=== PATIENT | male | born 1975 | race Two or more races ===

== ENCOUNTER 2019-09-16 23:11 | Inpatient (IN) | payer OTHER ==
[~2019-09-16] VITALS: Ht 170.2 cm; Wt 67.9 kg
[2019-09-16 23:35] LABS: BASOPHILS % (AUTO) 0.8 % (0.0-2.0); EOSINOPHILS % (AUTO) 5.3 % (1.0-6.0); HEMATOCRIT 38.2 % (41-53); HEMOGLOBIN 12.7 g/dL (13.5-17.5); LYMPHOCYTES # (AUTO) 1.6 K/uL (1.0-4.8); LYMPHOCYTES % (AUTO) 31.5 % (22.0-44.0); MEAN CORPUSCULAR HEMOGLOBIN 25.7 pg (26.0-34.0); MEAN CORPUSCULAR HGB CONC 33.3 G/dL (31.0-37.0); MEAN CORPUSCULAR VOLUME 77 fL (80-100); MONOCYTES # (AUTO) 0.5 K/uL (0.1-1.0); MONOCYTES % (AUTO) 10.3 % (2.0-9.0); NEUTROPHILS # (AUTO) 2.7 K/uL (1.8-7.7); NEUTROPHILS % (AUTO) 52.1 % (40.0-70.0); PLATELET COUNT (AUTO) 226 K/uL (150-450); RED BLOOD CELL COUNT(AUTO) 4.96 MIL/uL (4.50-5.90); RED CELL DISTRIBUTION WIDTH 17.2 % (11.5-14.5)
[2019-09-16 23:44] LABS: ANION GAP 8 mmol/L (8-16); CALCIUM, TOTAL 8.9 mg/dL (8.8-10.5); CARBON DIOXIDE 27 mmol/L (22-29); CHLORIDE 109 mmol/L (98-107); CREATININE 0.97 mg/dL (0.60-1.30); GLOMERULAR FILTR. RATE CALC > 60 mL/min (>60); GLUCOSE,RANDOM 97 mg/dL (70-110); POTASSIUM 3.9 mmol/L (3.5-5.1); SODIUM SERUM 144 mmol/L (136-145); UREA NITROGEN, BLOOD 11 mg/dL (7-18)
[2019-09-16] MEDS ORDERED: ARIP10TA8 PO (23:49)
[2019-09-16] MEDS ORDERED: BENZ1TAB10 PO (23:49)
[2019-09-16] MEDS ORDERED: DOXY50CA2 PO (23:49)
[2019-09-16] MEDS ORDERED: RISP2 PO (23:49)
[2019-09-16] MEDS ORDERED: OMEP20 PO (23:49)
[2019-09-16] MEDS ORDERED: METR250 PO (23:49)
[2019-09-16] MEDS ORDERED: HALO50AM2 IM (23:49)
[2019-09-16 23:52] LABS: ALANINE AMINOTRANSFERASE 36 U/L (12-78); ALBUMIN 3.1 g/dL (3.4-5.0); ALKALINE PHOSPHATASE 77 U/L (46-116); ASPARTATE AMINOTRANSFERASE 16 U/L (15-37); BILIRUBIN,TOTAL 0.2 mg/dL (0.1-1.0)
[2019-09-17] MEDS ORDERED: MAGNESIUM HYDROXIDE SUSPENSION 30 ML UDCUP PO PRN (00:15)
[2019-09-17] MEDS ORDERED: 0.9% SODIUM CHLORIDE 10 ML SYRINGE IVP PRN (02:15)
[2019-09-17] MEDS ORDERED: ACETAMINOPHEN 325 MG TABLET PO PRN (02:15)
[2019-09-17] MEDS ORDERED: ONDANSETRON HCL 4 MG/2 ML VIAL IVP PRN (02:15)
[2019-09-17 04:04] VITALS: BP 104/66
[2019-09-17 07:40] VITALS: BP 103/71
[2019-09-17] MEDS: FAMOTIDINE 20 MG TABLET PO SCH (08:15)
[2019-09-17] MEDS: SULFAMETHOX/TRIMETH DS 800-160 MG/TABLET PO SCH ×2 (08:15→20:39)
[2019-09-17] MEDS: ACETAMINOPHEN 325 MG TABLET PO PRN (08:18)
[2019-09-17 09:54] LABS: AMPHET/METH SCREEN,URINE NEGATIVE (NEGATIVE); BARBITURATE SCREEN, URINE NEGATIVE (NEGATIVE); BENZODIAZEPINES SCREEN,URINE NEGATIVE (NEGATIVE); CANNABINOID SCREEN,URINE NEGATIVE (NEGATIVE); COCAINE SCREEN,URINE NEGATIVE (NEGATIVE); METHADONE SCREEN, URINE NEGATIVE (NEGATIVE); OPIATE SCREEN,URINE NEGATIVE (NEGATIVE)
[2019-09-17 09:56] LABS: PHENCYCLIDINE SCREEN,URINE NEGATIVE (NEGATIVE)
[2019-09-17] MEDS: RisperiDONE 2 MG TABLET PO SCH ×2 (12:35→20:39)
[2019-09-17] MEDS: BENZTROPINE MESYLATE 1 MG TABLET PO SCH ×2 (12:35→20:39)
[2019-09-17] MEDS: BACITRACIN 28.4 GM OINTMENT TP SCH (12:36)
[2019-09-17 15:53] VITALS: BP 98/59
[2019-09-17 19:58] VITALS: BP 93/45
[2019-09-18 04:40] VITALS: BP 102/64
[2019-09-18 08:40] VITALS: BP 103/61
[2019-09-18] MEDS: BACITRACIN 28.4 GM OINTMENT TP SCH (08:57)
[2019-09-18] MEDS: BENZTROPINE MESYLATE 1 MG TABLET PO SCH ×2 (08:57→21:07)
[2019-09-18] MEDS: RisperiDONE 2 MG TABLET PO SCH ×2 (08:57→21:07)
[2019-09-18] MEDS: SULFAMETHOX/TRIMETH DS 800-160 MG/TABLET PO SCH ×2 (08:57→21:07)
[2019-09-18] MEDS: FAMOTIDINE 20 MG TABLET PO SCH (08:57)
[2019-09-18 15:10] VITALS: BP 100/53
[2019-09-18 21:05] VITALS: BP 90/54
[2019-09-18] MEDS: ACETAMINOPHEN 325 MG TABLET PO PRN (21:06)
[2019-09-19 04:31] VITALS: BP 96/54
[2019-09-19 07:53] VITALS: BP 108/58
[2019-09-19] MEDS: SULFAMETHOX/TRIMETH DS 800-160 MG/TABLET PO SCH ×2 (08:20→19:47)
[2019-09-19] MEDS: FAMOTIDINE 20 MG TABLET PO SCH (08:20)
[2019-09-19] MEDS: MULTIVITAMINS WITH MINERALS, THERAPEUTIC TABLET PO SCH (08:20)
[2019-09-19] MEDS: BACITRACIN 28.4 GM OINTMENT TP SCH (08:20)
[2019-09-19] MEDS: RisperiDONE 2 MG TABLET PO SCH ×2 (08:20→19:47)
[2019-09-19] MEDS: BENZTROPINE MESYLATE 1 MG TABLET PO SCH ×2 (08:24→19:47)
[2019-09-19 15:46] VITALS: BP 100/62
[2019-09-19] MEDS ORDERED: SODIUM CHLORIDE 0.9% 100 ML ONE (16:34)
[2019-09-19] MEDS ORDERED: IOVERSOL 350 MG/ML 100 ML VIAL ONE (16:34)
[2019-09-19] MEDS: ACETAMINOPHEN 325 MG TABLET PO PRN (19:47)
[2019-09-19 19:53] VITALS: BP 105/66
[2019-09-20 05:02] VITALS: BP 93/57
[2019-09-20 08:29] VITALS: BP 105/64
[2019-09-20] MEDS: FAMOTIDINE 20 MG TABLET PO SCH (12:12)
[2019-09-20] MEDS: MULTIVITAMINS WITH MINERALS, THERAPEUTIC TABLET PO SCH (12:13)
[2019-09-20] MEDS: SULFAMETHOX/TRIMETH DS 800-160 MG/TABLET PO SCH ×2 (12:13→20:12)
[2019-09-20] MEDS: BENZTROPINE MESYLATE 1 MG TABLET PO SCH ×2 (12:13→20:12)
[2019-09-20] MEDS: RisperiDONE 2 MG TABLET PO SCH ×2 (12:13→20:12)
[2019-09-20] MEDS: BACITRACIN 28.4 GM OINTMENT TP SCH (12:14)
[2019-09-20 20:10] VITALS: BP 96/57
[2019-09-21 04:50] VITALS: BP 96/58
[2019-09-21 07:06] LABS: BASOPHILS % (AUTO) 0.6 % (0.0-2.0); EOSINOPHILS % (AUTO) 4.2 % (1.0-6.0); HEMOGLOBIN 12.6 g/dL (13.5-17.5); LYMPHOCYTES # (AUTO) 1.1 K/uL (1.0-4.8); LYMPHOCYTES % (AUTO) 21.4 % (22.0-44.0); MEAN CORPUSCULAR HEMOGLOBIN 25.6 pg (26.0-34.0); MEAN CORPUSCULAR HGB CONC 33.1 G/dL (31.0-37.0); MEAN CORPUSCULAR VOLUME 77 fL (80-100); MONOCYTES # (AUTO) 0.5 K/uL (0.1-1.0); MONOCYTES % (AUTO) 9.6 % (2.0-9.0); NEUTROPHILS # (AUTO) 3.3 K/uL (1.8-7.7); NEUTROPHILS % (AUTO) 64.2 % (40.0-70.0); PLATELET COUNT (AUTO) 200 K/uL (150-450); RED BLOOD CELL COUNT(AUTO) 4.91 MIL/uL (4.50-5.90)
[2019-09-21 07:19] LABS: ANION GAP 6 mmol/L (8-16); CALCIUM, TOTAL 8.5 mg/dL (8.8-10.5); CARBON DIOXIDE 28 mmol/L (22-29); CHLORIDE 105 mmol/L (98-107); CREATININE 1.03 mg/dL (0.60-1.30); GLOMERULAR FILTR. RATE CALC > 60 mL/min (>60); GLUCOSE,RANDOM 87 mg/dL (70-110); POTASSIUM 4.2 mmol/L (3.5-5.1); SODIUM SERUM 139 mmol/L (136-145); UREA NITROGEN, BLOOD 14 mg/dL (7-18)
[2019-09-21 08:01] VITALS: BP 108/52
[2019-09-21] MEDS: MULTIVITAMINS WITH MINERALS, THERAPEUTIC TABLET PO SCH (08:23)
[2019-09-21] MEDS: FAMOTIDINE 20 MG TABLET PO SCH (08:23)
[2019-09-21] MEDS: SULFAMETHOX/TRIMETH DS 800-160 MG/TABLET PO SCH (08:23)
[2019-09-21] MEDS: BENZTROPINE MESYLATE 1 MG TABLET PO SCH (08:23)
[2019-09-21] MEDS: RisperiDONE 2 MG TABLET PO SCH (08:24)
[2019-09-21] MEDS: BACITRACIN 28.4 GM OINTMENT TP SCH (08:24)
[2019-09-21 15:55] VITALS: BP 99/60
== END 2019-09-21 17:55 | DRG 605 ==
LOC: EMS 23:14 → 6S 09-17 01:31
PROVIDERS: ADMIT Internal Medicine; ATTEND Internal Medicine
DX: S71.101A Unspecified open wound, right thigh, initial encounter (principal); F25.9 Schizoaffective disorder, unspecified; Z87.891 Personal history of nicotine dependence; Z91.5 Personal history of self-harm; X58.XXXA Exposure to other specified factors, initial encounter; Y93.89 Activity, other specified; Y92.89 Other specified places as the place of occurrence of the external cause; Y99.8 Other external cause status
CPT/HCPCS: 73701; 85651; 86140; 87081; 97116; 97162; G0480; J7050